=== PATIENT | male | born 1970 | race Caucasian/White ===

== ENCOUNTER 2017-03-04 09:56 | Day surgery (SDC) | payer OTHER ==
[2017-03-01 15:17] VITALS: BMI 19.8
[~2017-03-04 09:56] MED LIST: DEXAMETHASONE SOD PHOSPHATE 10 MG/ML 1 ML VIAL IV ONE; HYDROmorphone 1 MG/ML 1 ML SYRINGE IVP PRN; MIDAZOLAM 2 MG/2 ML VIAL IV PRN; ONDANSETRON 4 MG/2 ML VIAL IVP ONE; SCOPOLAMINE 1.5MG/72HR PATCH TRANSDERM ONE; ceFAZolin 2 GM in SODIUM CHLORIDE 0.9% 100 ML IVPB ONE
[2017-03-04] MEDS ORDERED: LACTATED RINGERS 1,000 ML IV ONE ×3 (10:15→12:52)
[2017-03-04] MEDS: LIDOCAINE 1% 20 ML VIAL (10MG/ML) FOR IV START INTRADERMA PRN ×2 (10:15→10:16)
[2017-03-04] MEDS: LACTATED RINGERS 1,000 ML IV SCH ×2 (10:16→10:48)
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
[2017-03-04] MEDS ORDERED: HEPARIN SODIUM,PORCINE 5,000 UNIT/ML 1 ML VIAL SQ STA (10:24)
[2017-03-04] MEDS ORDERED: VECURONIUM 10 MG VIAL IV ONE (10:49)
[2017-03-04] MEDS ORDERED: fentaNYL (PF) 50 MCG/ML 2 ML AMP ONE (10:49)
[2017-03-04] MEDS ORDERED: LABETALOL 5 MG/ML VIAL MDV ONE (10:49)
[2017-03-04] MEDS ORDERED: PROPOFOL 10 MG/ML 20 ML VIAL IV ONE (10:49)
[2017-03-04] MEDS ORDERED: KETOROLAC 30 MG/ML 1 ML VIAL ONE (10:49)
[2017-03-04] MEDS ORDERED: NEOSTIGMINE 1 MG/ML 10 ML VIAL ONE (10:49)
[2017-03-04] MEDS ORDERED: GLYCOPYRROLATE 0.2 MG/ML 2 ML VIAL ONE (10:49)
[2017-03-04] MEDS ORDERED: MIDAZOLAM 2 MG/2 ML VIAL ONE (10:49)
[2017-03-04] MEDS ORDERED: HYDROmorphone (PF) 1 MG/ML ONE (10:49)
[2017-03-04] MEDS ORDERED: SUCCINYLCHOLINE CHLORIDE 100 MG/5 ML SYR IV ONE (10:49)
[2017-03-04] MEDS ORDERED: LIDOCAINE 1% INJ 10MG/ML (20 ML MDV) ONE (10:49)
[2017-03-04] MEDS ORDERED: BUPIVACAINE (PF) 0.5% 30 ML VIAL SQ ONE (11:24)
[2017-03-04] MEDS ORDERED: ONDANSETRON 4 MG/2 ML VIAL IVP PRN (13:02)
[2017-03-04] MEDS ORDERED: ACETAMINOPHEN TAB 325 MG TAB PO PRN (13:02)
[2017-03-04] MEDS ORDERED: NALOXONE 0.4 MG/ML 1 ML VIAL IV PRN (13:02)
[2017-03-04] MEDS ORDERED: PROMETHAZINE 25 MG TAB PO PRN (13:02)
--- NOTE | 2017-03-04 13:02 | P.PCN ---
Date of Procedure: 03/04/17 Preoperative Diagnosis: History of bilateral inguinal hernia Postoperative Diagnosis: Left inguinal hernia, indirect; history of incarcerated right inguinal hernia Procedure(s) Performed: Laparoscopic repair bilateral inguinal hernia with Bard ventalight ST mesh 11.4 cm, reduction of incarcerated left inguinal lipoma with resection Implants: Bard Ventral ST mesh 11.4 cm. Anesthesia: GETA, local Surgeon: Taya Vaughn Estimated Blood Loss (ml): 5 Pathology: other (Left inguinal hernia and inguinal lipoma) Condition: stable Disposition: floor Indications for Procedure: Operative Findings: 1. Large indirect with direct inguinal hernia, Nyhus type 3, 3 cm defect indirect component. 2. Inguinal lipoma resected from left groin. 3. Mesh placement along the right groin. Description of Procedure:
[2017-03-04 13:06] VITALS: TEMP 98.4
[2017-03-04] MEDS ORDERED: KETOROLAC 30 MG/ML 1 ML VIAL IVP SCH (13:15)
[2017-03-04] MEDS ORDERED: NAPROXEN 250 MG TAB PO STA (16:17)
[2017-03-04 16:36] VITALS: BP 110/70; PULSE 71; RESP 18
--- NOTE | 2017-03-07 21:39 | P.OP ---
Date of Procedure: 03/04/17 Preoperative Diagnosis: Postoperative Diagnosis: Procedure(s) Performed: Implants: Indications for Procedure: Operative Findings: Description of Procedure: SURGEON: ALONDRA MANNING MD SANDER AND POLISHER: DOTTY HAILE PREOPERATIVE DIAGNOSES: 1. Previous history of incarcerated recurrent right inguinal hernia, with obstruction. 2. Left inguinal hernia, initial. 3. History of tobacco use. POSTOPERATIVE DIAGNOSES: 1. Previous history of incarcerated recurrent right inguinal hernia, with obstruction. 2. Left inguinal hernia, initial. 3. History of tobacco use. 4. Incarcerated initial indirect and direct left inguinal hernia, indirect, Nyhus type 3. 5. Lipoma of the left inguinal canal. OPERATION: 1. Robotic assisted laparoscopic bilateral inguinal hernia repair via transabdominal approach with 11.[address] mesh. 2. Excision and removal of large lipoma of the left inguinal canal. IMPLANTS: Bard ventralight ST mesh 11.4 cm. ANESTHESIA: General with local. ESTIMATED BLOOD LOSS: 5 mL. SPECIMENS REMOVED: Left inguinal hernia sac and lipoma of the left inguinal canal. COMPLICATIONS: None. INDICATIONS: The patient is a 47-year-old gentleman with previous history of incarcerated recurrent right inguinal hernia with bowel obstruction. Diagnostic studies are consistent with a left inguinal hernia, initial. Now he presents for definitive surgical intervention. Laparoscopic versus open and robotic approaches were discussed. Benefits and risks including bleeding, infection, injury to the vas deferens as well as sterility, chronic groin pain and possibility of open technique were reviewed. Placement of mesh was also described. Informed consent was obtained. DESCRIPTION: The patient was brought to the operating room and initially laid in supine position. After general induction, he was repositioned in modified lithotomy position. The abdomen had been prepped and draped in standard sterile fashion. Ioban draping was also placed. Guzman catheter was also placed. Prior to incision, a timeout protocol was confirmed with surgical team regarding patient's name including procedures to be performed. Initial positioning for the robotic assisted ports were selected whereby 15 to 20 cm superior to the target anatomy, 0 degree 5 mm laparoscopic trocar entry was performed above the umbilicus. The abdomen was insufflated to 15 mmHg which he had tolerated well. Diagnostic laparoscopy demonstrated along the left groin a Nyhus type 3 indirect and direct inguinal hernia of approximately 3 cm defect was encountered. Next, along the left upper abdomen, 12 cm from the camera port, an 8 mm robotic trocar was placed under direct visualization. On the contralateral right upper quadrant, 12 cm lateral to the camera port, an 8 mm port was a placed also under direct visualization. The 5 mm port was exchanged for a 12 mm trocar. The [employer] SI robot was primed, draped, and prepared for docking in between the legs of the patient. The patient was placed in steep Trendelenburg position. I then went to the [employer] SI console. Asst. Dotty Haile was at bedside for exchange of the robot arms and equipment. Attention was brought to the left groin. The incarcerated hernia was reduced into the abdominal cavity. The hernia sac of the left groin was evaginated whereby the peritoneum was scored using cautery. Using continuous retraction along the left groin, the left inguinal hernia was completely reduced into the abdominal cavity. Once completely reduced into the abdominal cavity, the peritoneal sac of the hernia was stripped and a large lipoma of the left groin was reduced. The sac was resected and then passed off for further pathological analysis. The size of the hernia defect was 3 cm with intraoperative films obtained. A separate direct hernia was also identified along the left groin. Using 2-0 Surgidac , the peritoneal defect of the left inguinal hernia site was closed in a pursestring fashion. Complete reduction of the left inguinal hernia was confirmed. As an onlay, an 11.[address] mesh by Bard was cut in half and entered into the abdominal cavity. The mesh was unrolled and laid against the inguinal floor. The mesh was sewn to the left groin and peritoneum using 6-inch 2-0 V-LOC stitch. The mesh repair was flat and final endoscopic imaging was obtained. Attention is now brought to the right groin with his history of previous right inguinal hernia. Mesh placement was proposed. As an onlay, an 11.[address] mesh by Bard was cut in half and entered into the abdominal cavity. The mesh was unrolled and laid against the inguinal floor. The mesh was sewn to the right groin and peritoneum using 6-inch 2-0 V-LOC stitch. The mesh repair was flat and final endoscopic imaging was obtained. The robot was undocked from the patient's bedside. I then rescrubbed into the case whereby the peritoneal defect corresponding to the 12 mm port was inspected. The specimen was removed from the abdominal cavity of the left inguinal hernia sac using an Endo Catch bag. The fascial defect was reapproximated using 0-Vicryl and a Сергей Alberto. All instruments and pneumoperitoneum were evacuated from the abdominal cavity. The rest of incisions were reapproximated using 4-0 Monocryl in a running subcuticular fashion. Hemostasis was excellent throughout the case. Dermabond was applied to the skin. The Guzman catheter was removed. At the end of the procedure, the needle, sponge and instrument counts had been verified correct by the neurosurgical nurse practitioner. The patient had tolerated the procedure well and was taken to the postanesthesia care unit in stable condition. Postoperative images were reviewed with the patient's family who were pleased with the level of care. FINDINGS: 1. Large indirect with direct inguinal hernia, Nyhus type 3, 3 cm defect indirect component. 2. Inguinal lipoma resected from left groin. 3. Mesh placement along the right groin. 4. Nyhus type IV right inguinal hernia.
== END 2017-03-04 17:19 | disposition home or self-care (01) ==
LOC: OR 09:56
PROVIDERS: ATTEND Surgery Plastic and Reconstructive Surgery
DX: K40.31 Unilateral inguinal hernia, with obstruction, without gangrene, recurrent (principal); K40.30 Unilateral inguinal hernia, with obstruction, without gangrene, not specified as recurrent; K21.9 Gastro-esophageal reflux disease without esophagitis; F12.90 Cannabis use, unspecified, uncomplicated; D17.6 Benign lipomatous neoplasm of spermatic cord; K40.00 Bilateral inguinal hernia, with obstruction, without gangrene, not specified as recurrent
CPT/HCPCS: 49650; 49651; 55559; S2900; 88304

== ENCOUNTER 2017-04-02 07:11 | Day surgery (SDC) | payer OTHER ==
[2017-04-01 08:18] VITALS: BMI 19.8
[~2017-04-02 07:11] MED LIST changes: -DEXAMETHASONE SOD PHOSPHATE 10 MG/ML 1 ML VIAL IV ONE; -HYDROmorphone 1 MG/ML 1 ML SYRINGE IVP PRN; +LACTATED RINGERS 1,000 ML IV SCH; -MIDAZOLAM 2 MG/2 ML VIAL IV PRN; -ONDANSETRON 4 MG/2 ML VIAL IVP ONE; -SCOPOLAMINE 1.5MG/72HR PATCH TRANSDERM ONE; -ceFAZolin 2 GM in SODIUM CHLORIDE 0.9% 100 ML IVPB ONE
[2017-04-02 07:24] VITALS: RESP 16; TEMP 96.9
--- NOTE | 2017-04-02 07:29 | P.GSHP ---
History of Present Illness H&P Date: 04/02/17 CHIEF COMPLAINT: GERD HISTORY OF PRESENT ILLNESS: The patient is a 47-year-old male who presents reports gastroesophageal reflux disease. Upper endoscopy was offered for further evaluation and management. PAST MEDICAL HISTORY: Please see list. PAST SURGICAL HISTORY: Please see list. MEDICATIONS: Please see list. ALLERGIES: Please see list. SOCIAL HISTORY: No illicit drug use FAMILY HISTORY: No reports of Crohn disease or ulcerative colitis. REVIEW OF ORGAN SYSTEMS: CONSTITUTIONAL: No reports of fevers or chills. GI: Denies any blood in stools or constipation. PHYSICAL EXAM: VITAL SIGNS: Stable GENERAL: Well-developed and pleasant in no acute distress. HEENT: No scleral icterus. Extraocular movements grossly intact. Moist buccal mucosa. NECK: Supple without lymphadenopathy. CHEST: Unlabored respirations. Equal bilateral excursions. CARDIOVASCULAR: Regular rate and rhythm. Distal 2+ pulses. ABDOMEN: Soft, nondistended. MUSCULOSKELETAL: No clubbing, cyanosis, or edema. ASSESSMENT: 1. Gastroesophageal reflux disease PLAN: 1. Recommend proceeding with an upper endoscopy Past Medical History Past Medical History: GERD/Reflux Additional Past Medical History / Comment(s): VARICOSE VEINS. History of Any Multi-Drug Resistant Organisms: None Reported Past Surgical History: Hernia Repair, Tonsillectomy Past Anesthesia/Blood Transfusion Reactions: No Reported Reaction Smoking Status: Current every day smoker - Past Family History Mother Family Medical History: Cancer Medications and Allergies Home Medications Medication Instructions Recorded Confirmed Type Hydrocodone/Acetaminophen [[address] 1 each PO Q6HR PRN #20 tab 03/04/17 04/02/17 Rx 5-325] Docusate [Colace] 100 mg PO DAILY #20 capsule 03/09/17 04/02/17 Rx Omeprazole 40 mg PO DAILY #30 capsule. 03/09/17 04/02/17 Rx diphenhydrAMINE [Benadryl] 25 mg PO DAILY PRN 04/01/17 04/02/17 History Allergies Allergy/AdvReac Type Severity Reaction Status Date / Time No Known Allergies Allergy Verified 04/01/17 08:14 Surgical - Exam Vital Signs Temp Pulse Resp BP 96.9 F L 54 L 16 144/93 04/02/17 07:22 04/02/17 07:22 04/02/17 07:22 04/02/17 07:22
[2017-04-02] MEDS ORDERED: LIDOCAINE 1% INJ 10MG/ML (20 ML MDV) ONE (07:49)
[2017-04-02] MEDS ORDERED: PROPOFOL 10 MG/ML 20 ML VIAL IV ONE (07:49)
--- NOTE | 2017-04-02 08:12 | P.PCN ---
Date of Procedure: 04/02/17 Preoperative Diagnosis: Postoperative Diagnosis: Procedure(s) Performed: Implants: Indications for Procedure: Operative Findings: Description of Procedure: PREOPERATIVE DIAGNOSIS: Gastroesophageal reflux disease. Epigastric abdominal pain. POSTOPERATIVE DIAGNOSIS: Epigastric abdominal pain. Gastritis. Duodenitis. Gastroesophageal reflux disease. Diaphragmatic hiatal hernia without obstruction. OPERATION: Esophagogastroduodenoscopy with biopsies along antrum. SURGEON: Taya Vaughn MD ANESTHESIA: MAC. INDICATIONS: The patient is a 47-year-old male who presents with a history of reflux disease and worsening epigastric abdominal pain. Benefits and risks of the procedure were described. Informed consent was obtained. DESCRIPTION: The patient was brought into the endoscopy suite and laid in the left lateral decubitus position. An Olympus gastroscope was passed along the posterior oropharynx down to the distal esophagus where the squamocolumnar junction was encountered at 41 cm from the incisors. The stomach was entered and bile reflux was found. Additional findings are listed below. Biopsies with cold forceps were obtained of the antrum. The first through third portion of the duodenum was examined with mild duodenitis. Retroflexion of the scope confirmed Hill grade 4 lower esophageal valve. The squamocolumnar junction demostrated LA grade B erosive esophagitis. The stomach was desufflated. The patient tolerated the procedure well. FINDINGS: Squamocolumnar junction 41 cm from the incisors. Diaphragmatic hiatus at 45 cm. Hiatal hernia 4 cm, sliding type, type III. Hill grade 4 lower esophageal valve. LA grade B erosive esophagitis. Chronic gastritis. No active duodenitis. RECOMMENDATIONS: Start medical therapy. Further recommendations pending results of pathology report. Upper endoscopy as needed. Will benefit from antireflux surgical procedure Plan - Discharge Summary New Discharge Prescriptions: No Action Hydrocodone/Acetaminophen [[place] 5-325] 1 each PO Q6HR PRN #20 tab PRN Reason: Pain Docusate [Colace] 100 mg PO DAILY #20 capsule Omeprazole 40 mg PO DAILY #30 capsule. diphenhydrAMINE [Benadryl] 25 mg PO DAILY PRN PRN Reason: ALLERGIES Discharge Medication List Hydrocodone/Acetaminophen [[place] 5-325] 1 each PO Q6HR PRN #20 tab 03/04/17 [Rx] Docusate [Colace] 100 mg PO DAILY #20 capsule 03/09/17 [Rx] Omeprazole 40 mg PO DAILY #30 capsule.dr 03/09/17 [Rx] diphenhydrAMINE [Benadryl] 25 mg PO DAILY PRN 04/01/17 [History]
[2017-04-02 08:38] VITALS: BP 127/80; PULSE 59
--- NOTE | 2017-04-02 09:49 | US ---
EXAMINATION TYPE: US gallbladder DATE OF EXAM: 04/02/2017 COMPARISON: NONE CLINICAL HISTORY: cholecystitis. Epigastric pain EXAM MEASUREMENTS: Liver Length: 17.1 cm Gallbladder Wall: 0.1 cm CBD: 0.4 cm Right Kidney: 9.5 x 4.4 x 5.4 cm Pancreas: visualized portions wnl, duct seen measuring 0.3cm, tail obscured by overlying midline bow el gas Liver: wnl Gallbladder: wnl Evidence for sonographic Gabriel's sign: no CBD: wnl Right Kidney: 1.1 x 1.0 x 0.9cm cystic area mid pole IMPRESSION: 1. Normal right upper quadrant ultrasound.
== END 2017-04-02 09:09 | disposition home or self-care (01) ==
LOC: ORWHC2ENDO 07:11
PROVIDERS: ATTEND Surgery Plastic and Reconstructive Surgery
DX: K21.0 Gastro-esophageal reflux disease with esophagitis (principal); K29.80 Duodenitis without bleeding; K44.9 Diaphragmatic hernia without obstruction or gangrene; K29.50 Unspecified chronic gastritis without bleeding; F17.200 Nicotine dependence, unspecified, uncomplicated; Z79.899 Other long term (current) drug therapy
CPT/HCPCS: 88305; 76705; 43239; J2001; J2704

== ENCOUNTER 2021-09-18 11:24 | Emergency (ER) | payer OTHER ==
[2021-09-18 12:36] VITALS: BP 141/85; PULSE 66; RESP 16; TEMP 98
--- NOTE | 2021-09-18 12:53 | ED ---
General Adult HPI - General Chief complaint: Head Injury Stated complaint: Head injury Time Seen by Provider: 09/18/21 12:40 Source: patient, RN notes reviewed, old records reviewed Mode of arrival: ambulatory Limitations: no limitations - History of Present Illness Initial comments: 51-year-old male who presents for evaluation of head injury. Patient had walked into a metal le at work 2 days ago. He injured the right temporal region. He's had persistent pain over the site. He's had some swelling as well as some nausea. Patient denies focal numbness or weakness. Denies anticoagulation. Denies abdominal pain chest pain. - Related Data Home Medications Medication Instructions Recorded Confirmed No Known Home Medications 09/18/21 09/18/21 Allergies Allergy/AdvReac Type Severity Reaction Status Date / Time No Known Allergies Allergy Verified 09/18/21 13:51 Review of Systems ROS Statement: Those systems with pertinent positive or pertinent negative responses have been documented in the HPI. ROS Other: All systems not noted in ROS Statement are negative. Past Medical History Past Medical History: GERD/Reflux Additional Past Medical History / Comment(s): VARICOSE VEINS. History of Any Multi-Drug Resistant Organisms: None Reported Past Surgical History: Hernia Repair, Tonsillectomy Past Anesthesia/Blood Transfusion Reactions: No Reported Reaction Past Psychological History: No Psychological Hx Reported Smoking Status: Current every day smoker Past Alcohol Use History: Daily Past Drug Use History: Marijuana - Past Family History Mother Family Medical History: Cancer General Exam Limitations: no limitations General appearance: alert, in no apparent distress Head exam: Present: atraumatic, normocephalic Eye exam: Present: normal appearance, PERRL ENT exam: Present: normal exam Neck exam: Present: normal inspection. Absent: tenderness, meningismus Respiratory exam: Present: normal lung sounds bilaterally. Absent: respiratory distress, wheezes, rales Cardiovascular Exam: Present: regular rate, normal rhythm GI/Abdominal exam: Present: soft. Absent: distended, tenderness, guarding Extremities exam: Present: normal inspection, full ROM, normal capillary refill Neurological exam: Present: alert, oriented X3, CN II-XII intact, normal gait. Absent: motor sensory deficit Psychiatric exam: Present: normal affect, normal mood Skin exam: Present: warm, dry, intact. Absent: cyanosis, diaphoretic Course Vital Signs 09/18/21 12:33 Temperature 98 F Pulse Rate 66 Respiratory 16 Rate Blood Pressure 141/85 O2 Sat by Pulse 99 Oximetry Medical Decision Making - Medical Decision Making CT is performed of both the facial bones, brain, and cervical spine. There is no traumatic injury noted, no intracranial hemorrhage, no facial bone fracture. Patient will be discharged home with close outpatient follow-up with his primary care physician. Disposition Clinical Impression: Concussion without loss of consciousness Disposition: HOME SELF-CARE Condition: Good Instructions (If sedation given, give patient instructions): Concussion (ED) Is patient prescribed a controlled substance at d/c from ED?: No Referrals: None,Stated [Primary Care Provider] - 1-2 days Yi Fontanez MD [STAFF PHYSICIAN] - 1-2 days Time of Disposition: 14:16
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
== END 2021-09-18 14:22 | disposition home or self-care (01) ==
LOC: EC 11:24
DX: S06.0X0A Concussion without loss of consciousness, initial encounter (principal); K21.9 Gastro-esophageal reflux disease without esophagitis; F17.200 Nicotine dependence, unspecified, uncomplicated; F12.90 Cannabis use, unspecified, uncomplicated; W22.8XXA Striking against or struck by other objects, initial encounter
CPT/HCPCS: 70450; 70486; 72125; 99283